=== PATIENT | male | born 1975 | race Two or more races ===

== ENCOUNTER 2017-05-07 15:53 | Emergency (ER) | payer MEDICAID ==
[2017-05-07 16:02] VITALS: BP 119/71; PULSE 78; RESP 18; TEMP 98; O2SAT 96
--- NOTE | 2017-05-07 16:03 | EDPHY ---
H & P Time Seen by Provider: 05/07/17 15:58 HPI/ROS: CHIEF COMPLAINT: Right knee pain HISTORY OF PRESENT ILLNESS: Patient is a 42-year-old man who comes to the emergency department complaining of right knee pain for the last 3 days. He denies any trauma. He states that he woke up in pain on Saturday morning. No swelling. No erythema. He has been ambulatory. He states that he feels that he cannot completely straighten his leg. No paresthesias or numbness. No weakness. He has had an ACL repair meniscus repair in that same knee about 10 years ago. He does not have any clicking. He states he does squat a lot for work. REVIEW OF SYSTEMS: Constitutional: denies: chills, fever, recent illness, recent injury EENTM: denies: blurred vision, double vision, nose congestion Respiratory: denies: cough, shortness of breath Cardiac: denies: chest pain, irregular heart rate, lightheadedness, palpitations Gastrointestinal/Abdominal: denies: abdominal pain, diarrhea, nausea, vomiting, blood streaked stools Genitourinary: denies: dysuria, frequency, hematuria, pain Musculoskeletal: See HPI Skin: denies: lesions, rash, jaundice, bruising Neurological: denies: headache, numbness, paresthesia, tingling, dizziness, weakness Hematologic/Lymphatic: denies: blood clots, easy bleeding, easy bruising Immunologic/allergic: denies: HIV/AIDS, transplant EXAM: GENERAL: Well-appearing, well-nourished and in no acute distress. HEAD: Atraumatic, normocephalic. EYES: Pupils equal round and reactive to light, extraocular movements intact, sclera anicteric, conjunctiva are normal. ENT: TMs normal, nares patent, oropharynx clear without exudates. Moist mucous membranes. NECK: Normal range of motion, supple without lymphadenopathy or JVD. LUNGS: Breath sounds clear to auscultation bilaterally and equal. No wheezes rales or rhonchi. HEART: Regular rate and rhythm without murmurs, rubs or gallops. ABDOMEN: Soft, nontender, normoactive bowel sounds. No guarding, no rebound. No masses appreciated. BACK: No CVA tenderness, no spinal tenderness, step-offs or deformities EXTREMITIES: Right knee pain, no tenderness, no swelling, no erythema, no effusion, pain over the patella tendon. He cannot completely straighten his leg but does has function of the patella tendon. NEUROLOGICAL: Cranial nerves II through XII grossly intact. Normal speech, normal gait. 5/5 strength, normal movement in all extremities, normal sensation PSYCH: Normal mood, normal affect. SKIN: Warm, dry, normal turgor, no visible rashes or lesions. Source: Patient Exam Limitations: No limitations - Personal History Tetanus Vaccine Date: 2011 - Medical/Surgical History Hx Asthma: No Hx Chronic Respiratory Disease: No Hx Diabetes: No Hx Cardiac Disease: No Hx Renal Disease: No Hx Cirrhosis: No Hx Alcoholism: No Hx HIV/AIDS: No Hx Splenectomy or Spleen Trauma: No Other PMH: KNEE SURG, DEPRESSION, left shoulder fx and ac separation 2006; r hand fx - Family History Significant Family History: No pertinent family hx - Social History Smoking Status: Light smoker Alcohol Use: Sober Drug Use: None Constitutional: Initial Vital Signs Temperature (C) 36.6 C 05/07/17 15:59 Heart Rate 78 05/07/17 15:59 Respiratory Rate 18 05/07/17 15:59 Blood Pressure 119/71 05/07/17 15:59 O2 Sat (%) 96 05/07/17 15:59 O2 Delivery Mode Room Air Allergies/Adverse Reactions: No Known Allergies Allergy (Unverified 12/26/13 10:19) Home Medications: Medication Instructions Recorded NK [No Known Home Meds] 05/07/17 Medical Decision Making - Diagnostics Imaging Results: X-ray: Right knee x-ray was obtained. I viewed the images myself on the PACS system. My interpretation of the images is: Negative for acute injury, previous hardware visible. The radiologist interpretation is pending. Imaging: I viewed and interpreted images myself Procedures: Procedure: Splint placement. A straight leg Velcro splint was applied. After application of the splint I returned and re-examined the patient. The splint was adequately immobilizing the joint and distal to the splint the patient's circulation and sensation was intact. ED Course/Re-evaluation: 4:15 p.m. we discussed the x-ray results. The patient is reassured. I suspect he has another meniscus injury. Dr. Sheri Garcia repaired his knee the 1st time. He will return to his office. He feels comfortable with this plan. He is placed in a straight leg brace. Departure - Departure Disposition: Home, Routine, Self-Care Clinical Impression: Knee pain, right anterior Condition: Fair Instructions: Knee Pain (ED) Referrals: NONE *PRIMARY CARE P,. [Primary Care Provider] - As per Instructions Sheri Garcia MD [Medical Doctor] - As per Instructions
== END 2017-05-07 16:24 | disposition home or self-care (01) ==
LOC: CED 15:53
DX: M25.561 Pain in right knee (principal); F17.200 Nicotine dependence, unspecified, uncomplicated
CPT/HCPCS: 73564-PO

== ENCOUNTER 2017-07-19 07:03 | Emergency (ER) | payer MEDICAID ==
--- NOTE | 2017-07-19 07:14 | EDPHY ---
H & P Time Seen by Provider: 07/19/17 07:06 HPI/ROS: CHIEF COMPLAINT: Dental pain HISTORY OF PRESENT ILLNESS: The patient presents to the ED with a 1 week history of dental pain. The patient has a prior history of a root canal. The patient reportedly has been using [id number] pain medications without improvement of symptoms. The patient reports pain around the #27 tooth. The patient denies additional significant past medical history. The patient reportedly is unable to see his dentist this week. REVIEW OF SYSTEMS: A comprehensive 10 point review of systems is otherwise negative aside from elements mentioned in the history of present illness. Source: Patient Exam Limitations: No limitations - Personal History Tetanus Vaccine Date: 2011 - Medical/Surgical History Hx Asthma: No Hx Chronic Respiratory Disease: No Hx Diabetes: No Hx Cardiac Disease: No Hx Renal Disease: No Hx Cirrhosis: No Hx Alcoholism: No Hx HIV/AIDS: No Hx Splenectomy or Spleen Trauma: No Other PMH: KNEE SURG, DEPRESSION, left shoulder fx and ac separation 2006; r hand fx - Social History Smoking Status: Light smoker - Physical Exam Exam: General Appearance: Alert, no distress Eyes: Pupils equal and round no pallor or injection ENT, Mouth: Generally poor dentition, prior filling noted in the area of the number 30 tooth, patient complains of pain around the area of the #27 tooth. Mild submandibular lymphadenopathy noted Respiratory: There are no retractions, lungs are clear to auscultation Cardiovascular: Regular rate and rhythm Gastrointestinal: Abdomen is soft and nontender, no masses, bowel sounds normal Neurological: No gross motor deficits Skin: Warm and dry, no rashes Constitutional: Initial Vital Signs Temperature (C) 37.0 C 07/19/17 07:17 Heart Rate 67 07/19/17 07:17 Respiratory Rate 18 07/19/17 07:17 Blood Pressure 108/85 H 07/19/17 07:17 O2 Sat (%) 95 07/19/17 07:17 O2 Delivery Mode Room Air Allergies/Adverse Reactions: No Known Allergies Allergy (Unverified 07/19/17 07:16) Home Medications: Medication Instructions Recorded NK [No Known Home Meds] 05/07/17 Medical Decision Making ED Course/Re-evaluation: I spoke with the on-call provider for [facility] in they will contact the patient this morning to schedule a follow-up visit. The patient was given a dental block with Marcaine. The patient is advised to continue NSAIDs. Differential Diagnosis: Differential diagnosis considered includes apical abscess, dental carries, fractured tooth Departure - Departure Disposition: Home, Routine, Self-Care Clinical Impression: Pain, dental Condition: Good Instructions: Dental Caries (ED) Additional Instructions: 1. [facility] will contact you this morning to schedule a follow-up visit later today. Referrals: [facility] [Outside] - As per Instructions
[2017-07-19 07:18] VITALS: BP 108/85; PULSE 67; RESP 18; TEMP 98.6; O2SAT 95
== END 2017-07-19 07:51 | disposition home or self-care (01) ==
LOC: CED 07:03
DX: K08.89 Other specified disorders of teeth and supporting structures (principal); F17.200 Nicotine dependence, unspecified, uncomplicated

== ENCOUNTER 2018-11-11 09:38 | Emergency (ER) | payer MEDICAID ==
--- NOTE | 2018-11-11 09:52 | EDPHY ---
H & P Stated Complaint: R hip pain Time Seen by Provider: 11/11/18 09:52 - Personal History Current Tetanus/Diphtheria Vaccine: Yes Current Tetanus Diphtheria and Acellular Pertussis (TDAP): Yes Tetanus Vaccine Date: 2011 - Medical/Surgical History Hx Asthma: No Hx Chronic Respiratory Disease: No Hx Diabetes: No Hx Cardiac Disease: No Hx Renal Disease: No Hx Cirrhosis: No Hx Alcoholism: No Hx HIV/AIDS: No Hx Splenectomy or Spleen Trauma: No Other PMH: KNEE SURG, DEPRESSION, left shoulder fx and ac separation 2006; r hand fx - Social History Smoking Status: Current every day smoker Constitutional: Initial Vital Signs Temperature (C) 36.8 C 11/11/18 09:43 Heart Rate 95 11/11/18 09:43 Respiratory Rate 16 11/11/18 09:43 Blood Pressure 123/80 H 11/11/18 09:43 O2 Sat (%) 93 11/11/18 09:43 O2 Delivery Mode Room Air Allergies/Adverse Reactions: No Known Allergies Allergy (Unverified 11/11/18 09:43) Home Medications: Medication Instructions Recorded Hydrocodone/APAP 5/325 [[place] 1 - 2 each PO Q4-6PRN PRN #20 tab 11/11/18 5/325] methylPREDNISolone [Medrol Dose 1 each PO AD #1 ea 11/11/18 Grant] Medical Decision Making - Diagnostics Imaging: Discussed imaging studies w/ crew caller Radiologist, I viewed and interpreted images myself ED Course/Re-evaluation: CHIEF COMPLAINT: Right hip pain HISTORY OF PRESENT ILLNESS: The patient is a 43 y/o male with a history of sciatica, knee surgery and numerous ortho injuries complaining of right lower back and hip pain consistent with prior episodes of sciatica. The pain started 3-4 days ago and radiates down to his toes. He also reports that his "knee jaime" due to the weakness and he is unable to bear weight due to the sciatica. He has not had any imaging studies of his back performed but has had cortisone shots in the past. No fever , headache, chest pain, shortness of breath, abdominal pain, urinary or bowel complaints. REVIEW OF SYSTEMS: A comprehensive 10 system review of systems is otherwise negative aside from elements mentioned in the history of present illness and medical decision making. PHYSICAL EXAM: HR, BP, O2 Sat, RR. Temp noted General Appearance: Alert, well hydrated, appropriate, and non-toxic appearing. Head: Atraumatic without scalp tenderness or obvious injury Eyes: Pupils equal, round, reactive to light and accommodation, EOMI, no trauma , no injection. Ears: Clear bilaterally, no perforation, normal landmarks Nose: Atraumatic, no rhinorrhea, clear. Throat: There is no erythema or exudates, no lesions, normal tonsils, mucus membranes moist. Neck: Supple, 2+ carotid upstroke, nontender, no lymphadenopathy. Respiratory: No retractions, no distress, no wheezes, and no accessory muscle use. Lungs are clear to auscultation bilaterally. Cardiovascular: Regular rate and rhythm, no murmurs, rubs, or gallops. Bilateral carotid, radial, dorsalis pedis, and posterior tibial pulses intact. Good capillary refill all extremities. Gastrointestinal: Abdomen is soft, nontender, non-distended, no masses, no rebound, no guarding, no peritoneal signs. Musculoskeletal: Normal active ROM of all extremities, atraumatic. Neurological: Anterior tibialis and quadriceps motor deficits. Alert, appropriate, and interactive. The patient has normal DTRs and non-focal cranial nerves, sensory, and cerebellar exam. Skin: No rashes, good turgor, no nodules on palpation. Past medical history: Depression, left shoulder fracture and AC separation 2006 , right hand fracture Past surgical history: Knee surgery Family history: Denies Social history: Lives in [place], single, self-employed DIAGNOSTICS/PROCEDURES/CRITICAL CARE TIME: Lumbar spine MRI: Degenerative disc disease DIFFERENTIAL DIAGNOSIS: The differential diagnosis for the patient's back pain included but was not limited to musculoskeletal pain, epidural abscess, herniated disk, spinal fracture, and intra-abdominal causes including urinary system. MEDICAL DECISION MAKING: The patient is a 43 y/o male with a history of sciatica, knee surgery and numerous ortho injuries presenting with right lower back and hip pain consistent with prior episodes of sciatica. On exam he has anterior tibialis and quadriceps motor deficits. His symptoms are consistent with an L5-S1 disc herniation. Patient has motor deficits and intractable pain, he will need a lumbar spine MRI; patient is comfortable with having an MRI. 2 tab PO Percocet and 60mg PO Prednisone administered. 1140: I spoke with the radiologist, regarding patient's lumbar spine MRI. There are no signs of a disc herniation or bulge. Patient has degenerative disc disease. 1150: Reassessed patient and discussed imaging findings. I have advised him to follow up with a neurosurgeon. I have prescribed him [place] and a Medrol dose pack. Return precautions provided; patient is comfortable with this plan. - Data Points Medications Given: Discontinued Medications Oxycodone/Acetaminophen (Percocet 5/325) 2 tab PO EDNOW ONE Stop: 11/11/18 10:21 Last Admin: 11/11/18 10:36 Dose: 2 tab Prednisone (Prednisone) 60 mg PO EDNOW ONE Stop: 11/11/18 10:22 Last Admin: 11/11/18 10:36 Dose: 60 mg Departure - Departure Disposition: Home, Routine, Self-Care Clinical Impression: Lumbar spine pain Low back pain Qualifiers: Chronicity: acute Back pain laterality: right Sciatica presence: with sciatica Sciatica laterality: sciatica of right side Qualified Code(s): M54.41 - Lumbago with sciatica, right side Condition: Good Instructions: Acute Low Back Pain (ED), Chronic Back Pain (DC) Additional Instructions: 1. Followup with a rare/endangered species specialist within one week. 2. Return to the emergency department for severe pain, fever, numbness, difficulty walking, change in location or nature of pain or other concerns. 3. Use ibuprofen and Tylenol as directed in addition to your prescribed [place]. 4. Take the Medrol dose pack as prescribed. 5. Try using a heating pad. Referrals: Bart Isbell MD [Medical Doctor] - As per Instructions Prescriptions: Hydrocodone/APAP 5/325 [[place] 5/325] 1 - 2 each PO Q4-6PRN PRN #20 tab PRN Reason: Pain, Moderate methylPREDNISolone [Medrol Dose Grant] 1 each PO AD #1 ea Report Scribed for: Bjorn Marcano Report Scribed by: Margareth Flores Date of Report: 11/11/18 Time of Report: 09:55
[2018-11-11] MEDS ORDERED: OXYCODONE/APAP 5/325 TAB PO ONE (10:20)
[2018-11-11] MEDS ORDERED: predniSONE 20 MG TAB PO ONE (10:21)
[2018-11-11 12:18] VITALS: BP 95/56
== END 2018-11-11 12:26 | disposition home or self-care (01) ==
DX: M54.41 Lumbago with sciatica, right side (principal); F32.9 Major depressive disorder, single episode, unspecified; F17.200 Nicotine dependence, unspecified, uncomplicated
CPT/HCPCS: J7512